=== PATIENT | female | born 1990 | race Caucasian/White ===

== ENCOUNTER → 2018-01-26 | Outpatient (CLI) | payer MEDICAID ==
--- NOTE | 2018-01-26 13:25 | RADIOLOGY IMAGING REPORT ---
FACILITY: [facility] PATIENT NAME: Teressa Neff : 1990 MR: [id number] V: [id number] EXAM DATE: [id number] ORDERING PHYSICIAN: AMANDA VALENTINE TECHNOLOGIST: Location: [facility] - [place] Patient: Teressa Neff : 1990 Visit/Account:[id number] Date of Sevice: 01/26/2018 Exam type: CHEST PA AND LAT History: Cough x1 day Comparison: None. Findings: The lungs are free of acute effusions, infiltrates or edema. There is no evidence of a pneumothorax or pneumomediastinum. The cardiac silhouette is normal in size. The trachea is in midline. IMPRESSION: 1. No acute cardiac pulmonary process is seen Report Dictated By: Fang Robles MD at 01/26/2018 1:21 PM Report E-Signed By: Fang Robles MD at 01/26/2018 1:22 PM WSN:[id number]
== END ==
LOC: RAD 11:01
PROVIDERS: ATTEND Physician Assistant
DX: R05 Cough (principal)
CPT/HCPCS: 71046